=== PATIENT | female | born 1975 | race Caucasian/White ===

== ENCOUNTER 2020-08-28 05:59 | Day surgery (SDC) | payer OTHER ==
[~2020-08-28 05:59] MED LIST: Albuterol 0.083% 2.5 MG/3 ML Neb Soln NEB SCH; Lactated Ringers 1,000 ML IV SCH; Lidocaine 1%/Sod Bicarbonate in NS 8.4% 1 ML Syringe IDERM PRN; Sodium Chloride 0.9% 10 ML Syringe FLUSH PRN
[2020-08-28] MEDS ORDERED: Acetaminophen 325 MG Tab PO SCH (06:00)
[2020-08-28] MEDS ORDERED: oxyCODONE ER 10 MG TAB.ER PO SCH (06:00)
[2020-08-28] MEDS ORDERED: Pregabalin 25 MG Cap PO SCH (06:00)
[2020-08-28] MEDS ORDERED: Morphine 8 MG, EPINEPHrine 0.3 MG, Cefuroxime 750 MG, Ketorolac 30 MG, Sodium Chloride ... PRN ×5 (06:20)
--- NOTE | 2020-08-28 06:51 | PCM.PREANE ---
Preanesthetic Assessment - Procedure Proposed Procedure: Right total knee - Anesthesia/Transfusion/Family Hx Anesthesia History: Prior Anesthesia Without Reaction Family History of Anesthesia Reaction: No Transfusion History: No Prior Transfusion(s) - Review of Systems General: No Symptoms Pulmonary: No Symptoms Cardiovascular: Dyspnea on Exertion Gastrointestinal: No Symptoms Neurological: Seizure (3 years old) Other: Reports: None - Physical Assessment NPO Status Date: 08/27/20 NPO Status Time: 00:00 Height: 1.65 m Weight: 123 kg ASA Class: 3 Mental Status: Alert & Oriented x3 Airway Class: Mallampati = 2 Dentition: Reports: [place](s) Thyro-Mental Finger Breadths: 2 Mouth Opening Finger Breadths: 2 ROM/Head Extension: Full Lungs: Clear to Auscultation, Normal Respiratory Effort Cardiovascular: Regular Rate, Regular Rhythm - Lab Values: Laboratory Last Values Urine HCG, Qual Negative (NEGATIVE) 08/28/20 05:55 - Imaging/EKG Impressions: EKG SR rate 80 - Allergies Allergies/Adverse Reactions: Allergies Allergy/AdvReac Type Severity Reaction Status Date / Time albuterol [From DuoNeb] Allergy Hives Verified 08/25/20 12:17 banana Allergy scratchy Verified 08/25/20 12:17 throat ipratropium [From DuoNeb] Allergy Hives Verified 08/25/20 12:17 ketorolac [From Toradol] Allergy Lethargy Verified 08/25/20 12:17 pollen extracts Allergy Cannot Verified 08/25/20 12:17 Remember tree and shrub pollen Allergy Cannot Verified 08/25/20 12:17 Remember chemicals Allergy Cannot Uncoded 08/25/20 12:17 Remember - Anesthesia Plan Pre-Op Medication Ordered: None - Acknowledgements Anesthesia Type Planned: Spinal Pt an Appropriate Candidate for the Planned Anesthesia: Yes Alternatives and Risks of Anesthesia Discussed w Pt/Guardian: Yes Pt/Guardian Understands and Agrees with Anesthesia Plan: Yes PreAnesthesia Questionnaire HEENT History: Reports: Impaired Vision, Sinusitis, Other (See Below) Other HEENT History: wears glasses Cardiovascular History: Reports: None Respiratory History: Reports: Asthma, Sleep Apnea Gastrointestinal History: Reports: GERD CARDROOM DRAWING RUNNER History: Reports: Polycystic Ovaries, Other (See Below) Other OB/BYN History: menometrorrhagia, oligomenorrhea, dysmenorrhea Musculoskeletal History: Reports: Arthritis, Osteoarthritis, Other (See Below) Other Musculoskeletal History: right wrist injury, right knee meniscus tear Neurological History: Reports: Migraines Psychiatric History: Reports: Anxiety, Depression Endocrine/Metabolic History: Reports: Obesity/BMI 30+, Other (See Below) Other Endocrine/Metabolic History: female hirsutism Hematologic History: Reports: None Immunologic History: Reports: None Oncologic (Cancer) History: Reports: None Dermatologic History: Reports: Other (See Below) Other Dermatologic History: flexural atopic dermatitis - Past Surgical History Head Surgeries/Procedures: Reports: None HEENT Surgical History: Reports: Naso-Sinus Surgery Cardiovascular Surgical History: Reports: None Respiratory Surgical History: Reports: None GI Surgical History: Reports: Colonoscopy Female Surgical History: Reports: Other (See Below) Other Female Surgeries/Procedures: colposcopy, cervical biopsy, laparoscopy Neurological Surgical History: Reports: None Musculoskeletal Surgical History: Reports: Other (See Below) Other Musculoskeletal Surgeries/Procedures:: right rotator cuff repair Oncologic Surgical History: Reports: None Dermatological Surgical History: Reports: None - SUBSTANCE USE Tobacco Use Status *Q: Former Tobacco User Tobacco Use Within Last Twelve Months: No Second Hand Smoke Exposure: No Days Per Week of Alcohol Use: 1 Number of Drinks Per Day: 2 Total Drinks Per Week: 2 Recreational Drug Use History: No - HOME MEDS Home Medications: Home Meds Albuterol Sulfate [Albuterol Sulfate HFA] 2 puff INH QID PRN 08/25/20 [History] Albuterol [Proventil Neb Soln] 1 dose NEB Q4H PRN 08/25/20 [History] Biotin 1 mg PO Q48H 08/25/20 [History] Budesonide [Rhinocort Allergy] 1 dose NASBOTH DAILY 08/25/20 [History] Cholecalciferol (Vitamin D3) [Vitamin D3] 5,000 unit PO DAILY 08/25/20 [History] Ethinyl Estradiol/Drospirenone [[place] 28 Tablet] 1 tab PO DAILY 08/25/20 [History] Fluticasone Propion/Salmeterol [Advair 250-50 Diskus] 2 puff INH BID 08/25/20 [History] Glucosam/Chond/Hyalu/Cf Borate [Move Free Joint Health Tablet] 2 tab PO DAILY 08/25/20 [History] Ipratropium [Atrovent 0.03% Nasal Hope] 1 dose KATIUSKA QID PRN 08/25/20 [History] L Acidophil/B Lactis/B Longum [Florajen3] 260 mg PO DAILY 08/25/20 [History] Loratadine [Claritin] 10 mg PO DAILY 08/25/20 [History] Magnesium Oxide 400 mg PO DAILY 08/25/20 [History] Melatonin/Pyridoxine HCl (B6) [Melatonin 3 mg Tablet] 1 - 2 tab PO BEDTIME PRN 08/25/20 [History] Mineral Oil/Petrolatum [Aquaphor Healing Oint] 1 dose TOP DAILY 08/25/20 [History] Montelukast Sodium [Singulair] 10 mg PO BEDTIME 08/25/20 [History] Multivitamin 1 tab PO DAILY 08/25/20 [History] Nystatin [Nystatin Crm] 1 dose TOP ASDIRECTED PRN 08/25/20 [History] Nystatin [Nystatin Oral Syringe] 1 dose PO QID 08/25/20 [History] Omeprazole Magnesium [Prilosec Otc] 20 mg PO DAILY 08/25/20 [History] Potassium Gluconate [Potassium] 99 mg PO DAILY 08/25/20 [History] Tiotropium [Spiriva HandiHaler] 2 puff INH DAILY 08/25/20 [History] busPIRone [Buspar] 5 mg PO QAM 08/25/20 [History] busPIRone [Buspar] 10 mg PO QPM 08/25/20 [History] diphenhydrAMINE [Benadryl] 50 mg PO Q4H PRN 08/25/20 [History] guaiFENesin [Mucinex] 600 mg PO BID PRN 08/25/20 [History] levalbuterol HCL [Xopenex] 1 dose NEB Q8H PRN 08/25/20 [History] predniSONE 10 mg PO DAILY PRN 08/25/20 [History] Aspirin [Aspirin EC] 325 mg PO BID #84 tab 08/28/20 [Rx] Cyclobenzaprine [Flexeril] 10 mg PO BID PRN #20 tab 08/28/20 [Rx] oxyCODONE 5 - 10 mg PO Q4H PRN #40 tab 08/28/20 [Rx] - CURRENT (IN HOUSE) MEDS Current Meds: Current Medications Acetaminophen (Acetaminophen 325 Mg Tab) 975 mg PO ONETIME NAKUL Stop: 08/28/20 13:00 Albuterol (Albuterol 0.083% 2.5 Mg/3 Ml Neb Soln) 2.5 mg NEB ONETIME NAKUL Stop: 08/28/20 18:00 Last Admin: 08/28/20 06:41 Dose: 2.5 mg Documented by: Morphine Sulfate 8 mg/Epinephrine HCl 0.3 mg/Cefuroxime Sodium 750 mg/Ketorolac Tromethamine 30 mg/Sodium Chloride 7.9 ml 0 mg .XX ASDIRECTED PRN PRN Reason: Pain Lactated Ringer's (Ringers, Lactated) 1,000 mls @ 125 mls/hr IV ASDIRECTED NAKUL Stop: 08/28/20 23:00 Lidocaine/Sodium Bicarbonate (Lidocaine 1%/Sod Bicarbonate In Ns 8.4% 1 Ml Syringe) 0.25 ml IDERM ONETIME PRN PRN Reason: Prior to IV Start Stop: 08/28/20 18:00 Oxycodone HCl (Oxycodone Er 10 Mg Tab.Er) 10 mg PO ONETIME NAKUL Stop: 08/28/20 13:00 Pregabalin (Pregabalin 25 Mg Cap) 50 mg PO ONETIME NAKUL Stop: 08/28/20 13:00 Sodium Chloride (Sodium Chloride 0.9% 10 Ml Syringe) 10 ml FLUSH ASDIRECTED PRN PRN Reason: Keep Vein Open Stop: 08/28/20 18:00 Discontinued Medications Tranexamic Acid (Tranexamic Acid 1,000 Mg/10 Ml Amp) Confirm Administered Dose 1,000 mg .ROUTE .STK-MED ONE Stop: 08/28/20 06:04 Vancomycin HCl (Vancomycin 1 Gm Sdv) Confirm Administered Dose 1 gm .ROUTE .STK- MED ONE Stop: 08/28/20 06:04
[2020-08-28] MEDS ORDERED: Propofol 200 MG/20 ML SDV ONE ×4 (07:01→08:23)
[2020-08-28] MEDS ORDERED: Lidocaine 1% 4 ML ONE (07:02)
[2020-08-28] MEDS ORDERED: fentaNYL 100 MCG/2 ML SDV ONE (07:02)
[2020-08-28] MEDS ORDERED: Midazolam 1 MG/ML 2 ML SDV ONE ×2 (07:02→08:10)
[2020-08-28] MEDS ORDERED: ceFAZolin 1 GM Vial ONE (07:31)
[2020-08-28] MEDS: Morphine 8 MG, EPINEPHrine 0.3 MG, Cefuroxime 750 MG, Sodium Chloride 0.9% 7.9 ML PRN ×8 (08:05→08:27)
[2020-08-28] MEDS: Vancomycin 1 GM SDV ONE ×2 (08:06→08:35)
[2020-08-28] MEDS ORDERED: Lactated Ringers 1,000 ML ONE ×2 (08:12)
[2020-08-28] MEDS ORDERED: Labetalol 100 MG/20 ML MDV ONE (08:16)
--- NOTE | 2020-08-28 09:00 | PCM.POSTAN ---
POST ANESTHESIA ASSESSMENT - MENTAL STATUS Mental Status: Alert, Oriented - VITAL SIGNS Vital Signs: Last Vital Signs Temp 36.1 C 08/28/20 06:05 Pulse 75 08/28/20 06:05 Resp 20 08/28/20 06:05 BP 146/103 H 08/28/20 06:05 Pulse Ox 98 08/28/20 06:41 - RESPIRATORY Respiratory Status: Respiratory Rate WNL, Airway Patent, O2 Saturation Stable - CARDIOVASCULAR CV Status: Pulse Rate WNL, Blood Pressure Stable - GASTROINTESTINAL GI Status: No Symptoms - PAIN Pain Score: 0 - POST OP HYDRATION Hydration Status: Adequate & Stable - OBSERVATIONS Free Text/Narrative:: no anesthesia complications noted
[2020-08-28] MEDS ORDERED: Ropivacaine 0.5% 5 MG/ML 30 ML SDV ONE (09:04)
[2020-08-28] MEDS ORDERED: EPINEPHrine 1 MG/ML SDV ONE (09:05)
--- NOTE | 2020-08-28 09:26 | PCM.SN.2 ---
- Free Text/Narrative Note: Right selective femoral nerve block at the adductor canal for post-procedure pain control under US guidance requested by Dr. Estrada. Time Out: 909 Start: 909 End: 913 Chart reviewed. Consent signed. Questions answered. Appropriate monitors applied. Time out performed. Right mid-shaft femur identified with ultrasound, scanning medially of femur, the femoral artery in the adductor canal visualized, and the femoral nerve located laterally to the artery. The skin was prepped lateral to the ultrasound probe with chlorahexadine times two. The 21ga 4 insulated block needle was inserted under direct ultrasound guidance into the adductor canal. 25 mL of 0.5% ropivacaine with 1:200,000 epinephrine was injected circumferentially around the nerve with intermittent negative aspiration noted. Patient tolerated the procedure well. Sterile technique noted along with sterile gloves, mask, and sterile probe cover. See picture on progress note and vital signs on nurses notes. Block completed in PACU. Danielito Hubbard CRNA
[2020-08-28] MEDS: oxyCODONE 5 MG Tab PO PRN ×2 (09:29→13:41)
[2020-08-28] MEDS ORDERED: Cyclobenzaprine 10 MG Tab PO ONE (10:00)
--- NOTE | 2020-08-28 10:14 | CR ---
Right knee: AP and crosstable lateral views of the right knee were obtained. Comparison: Prior CT right knee study of 08/03/19. Knee prosthesis is noted. Patellar prosthesis is also noted. Components are aligned. Underlying bony structures are intact. Soft tissue air is noted from the surgical procedure. Impression: 1. Satisfactory postop radiographic appearance of recently placed right knee prosthesis. Diagnostic code #2
[2020-08-28] MEDS ORDERED: Ondansetron 4 MG/2 ML SDV ONE (11:51)
[2020-08-28] MEDS ORDERED: Ondansetron 4 MG/2 ML SDV IVPUSH ONE (12:30)
[2020-08-28] MEDS ORDERED: fentaNYL 100 MCG/2 ML SDV IVPUSH ONE (13:00)
[2020-08-28] MEDS ORDERED: fentaNYL 100 MCG/2 ML SDV IVPUSH STA (13:27)
--- NOTE | 2020-08-28 15:21 | PCM48HPAN ---
Post Anesthesia Note - EVALUATION WITHIN 48HRS OF ANESTHETIC Vital Signs in Normal Range: Yes Patient Participated in Evaluation: Yes Respiratory Function Stable: Yes Airway Patent: Yes Cardiovascular Function Stable: Yes Hydration Status Stable: Yes Pain Control Satisfactory: Yes Nausea and Vomiting Control Satisfactory: Yes Mental Status Recovered: Yes Vital Signs: Last Vital Signs Temp 36.6 C 08/28/20 10:00 Pulse 87 08/28/20 14:00 Resp 16 08/28/20 14:00 BP 152/96 H 08/28/20 14:00 Pulse Ox 94 L 08/28/20 14:00
--- NOTE | 2020-08-28 17:48 | PCM.OPNOTE ---
- General Post-Op/Procedure Note Date of Surgery/Procedure: 08/28/20 Operative Procedure(s): right total knee arthroplasty with [employer] Pre Op Diagnosis: right knee osteoarthrosis Post-Op Diagnosis: Same Anesthesia Technique: Local, MAC, Spinal Primary Surgeon: James Estrada Anesthesia Provider: Danielito Hubbard Tank Wagon Operator: Ibis Young Tank Wagon Operator: Patricia Sampson EBL in mLs: 100 Complications: None Condition: Good Free Text/Narrative:: Intake & Output 08/28/20 08/28/20 08/28/20 06:59 14:59 22:59 Intake Total 300 Balance 300 5 femur 4 tibia 9mm 29x9
--- NOTE | 2020-09-07 08:25 | OR ---
DATE OF OPERATION: 08/28/2020 SURGEON: James Estrada MD OPERATION PERFORMED: Right total knee arthroplasty with [employer]. PREOPERATIVE DIAGNOSIS: Right knee osteoarthrosis. POSTOPERATIVE DIAGNOSIS: Right knee osteoarthrosis. ANESTHESIA: Local MAC with spinal. ANESTHESIA PROVIDER: Junior Rodriguez. SPRAY GUN STRIPER: Ibis Young PA-C; and Patricia Sampson LPN. ESTIMATED BLOOD LOSS: 100 mL. COMPLICATIONS: None. CONDITION: Stable. IMPLANTS: 1. Keenes size 5 press-fit CR femur. 2. Keenes size 4 press-fit tibial baseplate. 3. Keenes size 4 9 mm CS polyethylene insert. 4. Tera size 29 x 9 mm press-fit asymmetric patella. DESCRIPTION OF PROCEDURE: The patient was identified in the preoperative holding area. Proper site was marked and identified by surgeon. The patient was taken back to the operating theater where after adequate anesthesia, the patient had a nonsterile tourniquet applied to the right lower extremity. Right lower extremity was then sterilely prepped and draped in the usual sterile fashion. OR time-out was performed. The patient received 3 g IV Ancef. At this time, the leg bennett boot was applied to the right lower extremity. Right lower extremity was then exsanguinated and tourniquet was insufflated to 250 mmHg. Standard anterior incision was made. A medial parapatellar arthrotomy was created. Deep fibers of the MCL were raised and anterior fat pad was resected. Attention was turned to the patella. Patella measured 21, and resected to a 13 for a 29 x 9 mm patella. Drill holes were drilled and found to be adequate. At this time, two 4.0 guide pins were placed intra-incisionally in the femur for the [employer]era [employer]enn[employer] robotic array. Two more were placed on the tibia 3 fingerbreadths below the level of the tibial tubercle for [employer] robotic array. The femoral and tibial checkpoints were then placed. Hip center rotation was obtained. Medial and lateral malleoli were marked. At this time, 40 points were obtained off the femur and the tibia for the [employer] robotic plan. The patient's knee was brought into full extension. Varus and valgus stresses were applied. The patient was noted to have 19 mm flexion extension gaps set for her anatomy following Keenes [employer] robotic plan. A straight saw blade was brought in. The tibial anterior chamfer cut and posterior femoral cup were all completed. Bony fragments were removed, saw blade was switched, and the distal femoral cut and posterior chamfer cuts were completed at this time. All bony fragments were then removed. Medial and lateral meniscus were resected as well as any posterior osteophytes. Trial implants were then placed with a size 4 tibia and a size 5 femur, and a 9 mm trial polyethylene. The patient had full extension and flexion. No varus or valgus instability was noted with the [employer] robotic array. At this time, components were opened on the back table. The femoral drill holes were drilled and the tibia was stamped and drilled in proper rotation. All trial implants were removed. The size 4 press-fit tibia was impacted into place, size 5 femur was impacted into place, size 9 mm CS polyethylene insert was impacted into place, and a 29 x 9 mm press-fit patella was press-fit into place. At this time, tourniquet was deflated. Bleeders were cauterized. Periarticular injection was completed. 1 L of pulse lavage irrigation with Ancef was irrigated through the knee along with 400 mL of IrriSept irrigation. Topical tranexamic acid and vancomycin powder were applied. A #2 barbed suture was used for closure of the medial parapatellar arthrotomy. 2-0 Vicryl was used subcutaneously as well as Stratafix. Prineo was used for skin closure. The patient had a sterile soft dressing applied and sent to the PACU in stable condition. LUIS /[id number]
== END 2020-08-28 15:20 | disposition home or self-care (01) ==
LOC: JD.SDS 05:59
PROVIDERS: ATTEND Orthopaedic Surgery
DX: M17.11 Unilateral primary osteoarthritis, right knee (principal); G89.29 Other chronic pain; G89.18 Other acute postprocedural pain; J45.909 Unspecified asthma, uncomplicated; G47.30 Sleep apnea, unspecified; K21.9 Gastro-esophageal reflux disease without esophagitis; E66.9 Obesity, unspecified; Z01.812 Encounter for preprocedural laboratory examination; Z20.822 Contact with and (suspected) exposure to COVID-19; Z88.6 Allergy status to analgesic agent; Z79.899 Other long term (current) drug therapy; Z87.891 Personal history of nicotine dependence; Z91.018 Allergy to other foods; Z88.8 Allergy status to other drugs, medicaments and biological substances; Z91.048 Other nonmedicinal substance allergy status; Z68.42 Body mass index [BMI] 45.0-49.9, adult; Z98.890 Other specified postprocedural states
CPT/HCPCS: 27447; 73560; 81025; 94640; 97110; 97116; 97161; 97165; A9270; C1713; C1776; J0171; J0690; J0697; J2250; J2270; J2370; J2405; J2704; J2795; J3010; J3370; J3490; J7120; 01402; 64450; 76942